=== PATIENT | male | born 1985 | race Caucasian/White ===

== ENCOUNTER 2021-07-04 15:26 | Inpatient (IN) | payer BC ==
[~2021-07-04] VITALS: Ht 172.7 cm; Wt 92.1 kg
[2021-07-04 15:40] VITALS: BP 137/92
--- NOTE | 2021-07-04 17:12 | NUR ---
to er bed 13,no apparent change in condition
--- NOTE | 2021-07-04 17:26 | NUR ---
dr umana at bedside for eval.
[2021-07-04] MEDS ORDERED: ONDANSETRON HCL/PF 4 MG/2 ML VIAL IVP ONE (17:30)
[2021-07-04] MEDS ORDERED: HYDROMORPHONE INJ 2 MG/ML DISP.SYRIN IV ONE (17:30)
[2021-07-04] MEDS ORDERED: IV NS 0.9% 1,000 ML BAG IV ONE (17:30)
[2021-07-04] MEDS ORDERED: IOHEXOL-300 100 ML VIAL IV ONE (17:35)
[2021-07-04] MEDS ORDERED: IV NS 0.9% 250 ML IV ONE (17:35)
--- NOTE | 2021-07-04 17:35 | NUR ---
iv line started blood drawn and sent to lab.
[2021-07-04 17:55] LABS: BASOPHILS % (AUTO) 0.3 % (0.0-2.0); EOSINOPHILS % (AUTO) 0.3 % (0.0-6.0); HEMATOCRIT 51 % (39-51); HEMOGLOBIN 16.4 g/dL (13.5-17.5); LYMPHOCYTES # (AUTO) 1.4 K/uL (0.8-4.8); LYMPHOCYTES % (AUTO) 14.9 % (20.0-44.0); MEAN CORPUSCULAR HGB CONC 32 g/dl (31.0-36.0); MEAN CORPUSCULAR VOLUME 90 fL (80-96); MONOCYTES # (AUTO) 0.4 K/uL (0.1-1.30); MONOCYTES % (AUTO) 4.7 % (2.0-12.0); NEUTROPHILS # (AUTO) 7.7 K/uL (1.8-8.9); NEUTROPHILS % (AUTO) 79.8 % (43.0-81.0); PLATELET COUNT (AUTO) 352 K/uL (150-450); RED BLOOD CELL COUNT(AUTO) 5.68 MIL/uL (4.5-6.0); WHITE BLOOD COUNT (AUTO) 9.6 K/uL (4.3-11.0)
[2021-07-04] MEDS ORDERED: HYDROMORPHONE 1 MG/1 ML DISP.SYRIN ONE (18:00)
[2021-07-04] MEDS ORDERED: ONDANSETRON HCL/PF 4 MG/2 ML VIAL ONE (18:00)
[2021-07-04 18:24] LABS: CREATININE 1.5 mg/dL (0.6-1.3); POTASSIUM 4.9 mmol/L (3.5-5.1)
[2021-07-04] MEDS ORDERED: IV LR 1000 ML 1,000 ML IV ONE (18:30)
[2021-07-04 18:35] LABS: ALBUMIN 4.5 g/dL (3.4-5.0); BILIRUBIN,TOTAL 0.7 mg/dL (0.2-1.0); TOTAL PROTEIN, SERUM 10.4 g/dL (6.4-8.2)
--- NOTE | 2021-07-04 20:56 | NUR ---
VERBAL ORDER FOR 1MG IV DILAUDID PER MD ORDERS ADMINISTERRED.
--- NOTE | 2021-07-04 20:56 | NUR ---
CALLED [facility] PAGED JIM ADAME
[2021-07-04] MEDS ORDERED: ACETAMINOPHEN 650 MG/SUPP.RECT RC PRN (21:30)
[2021-07-04] MEDS ORDERED: ONDANSETRON HCL/PF 4 MG/2 ML VIAL IVP PRN (21:30)
[2021-07-04] MEDS ORDERED: Z GUARD REMEDY 2 OZ OINT TP PRN (21:30)
[2021-07-04] MEDS ORDERED: IV D5/0.45 NACL 1,000 ML IV PRN (21:30)
--- NOTE | 2021-07-04 21:34 | NUR ---
REPORT GIVEN TO ROBBIE STRAUSS
--- NOTE | 2021-07-04 21:47 | NUR ---
Muna nieto in [facility] - 07/04/21 at 2148 by MADONNA PATIENT BEING TRANSFERED TO 324
--- NOTE | 2021-07-04 21:48 | NUR ---
PATIENT BEING TRANSFERRED TO [facility]
--- NOTE | 2021-07-04 22:20 | NUR ---
RN MS OPENING ADMITTING NOTES ADMITTED A 35 Y/O M TO UNIT AT 2155 VIA GURNEY ACCOMPANIED BY Aly RN, PT. IS A/O X 4. ABLE TO MAKE NEEDS KNOWN. NO C/O OF PAIN OR DISCOMFORT AT THIS TIME. PT. ORIENTED TO STAFF AND ROOM. PT. ON ROOM AIR, RAFFI. WELL WITH NO SOB NOTED. PATIENT WITH IV AT RAC G#20 STARTED INFUSION OF D5 1/2 NS 1 L TO RUN AT 200 ML/HR, INFUSING WELL. LUNGS ARE CLEAR ON AUSCULTATION. ABDOMEN SOFT AND NON DISTENDED ON FOUR QUADRANTS. SAFETY MEASURES INITIATED, BED PLACED IN LOWEST POSITION WITH SR-UP X 2. CALL LIGHT AND BEDSIDE TABLE WITHIN EASY REACH.WILL CONTINUE TO MONITOR PATIENT ACCORDINGLY
[2021-07-04] MEDS ORDERED: MORPHINE SULFATE INJ 4 MG/ML DISP.SYRIN IV PRN (22:30)
--- NOTE | 2021-07-05 00:13 | NUR ---
RN NOTES PATIENT C/O SEVERE PAIN ON HIS UPPER ABDOMEN WITH P/S OF 9/10. CALLED DR. ADAME FOR ORDERS OF PAIN MEDS. AND ORDERED MORPHINE SO4 4MG IV Q4, NOTED AND CARRIED OUT. MORPHINE SO4 GIVEN AT 2302. WILL CONTINUE TO MONITOR PATIENT ACCORDINGLY.
--- NOTE | 2021-07-05 01:10 | NUR ---
RN NOTES PATIENT STATED THAT HE IS STILL HAVE PAIN, AND STATED THAT MORPHINE SULFATE IS NOT WORKING FOR HIM. CALLED DR. JIM ADAME AND NOTIFIED HIM PATIENT'S CONCERN. WHILE SPEAKING TO MD, MADE NEW ORDER TO D/C MORPHINE MEDS. AND ORDERED DILAUDID 1 MG Q 6 FOR SEVERE PAIN TO START AT 2AM 07/05/21. ALL ORDERS NOTED AND CARRIED OUT. WILL CONTINUE TO MONITOR PATIENT ACCORDINGLY
[2021-07-05] MEDS ORDERED: HYDROMORPHONE 1 MG/1 ML DISP.SYRIN IV PRN (02:00)
--- NOTE | 2021-07-05 02:00 | NUR ---
RN NOTES Earlier patient wants to do AMA but change his mind and wants to speak to Mitchell Malone-CECILIA. Talked to the patient why he wants to speak with an MD but refused to elaborate, he stated " he already told it to my orientee n and he said he just spoke to ER doctor and per patient" ER doctor was so surprise because he's getting his Dilaudid 1 mg IV q6 PRN" while talking to me was pt was on his bed crossing his legs . Spoke to DR. Malone and informed him that patient wants to speak to him and explained the situation. Dr. Malone explained to me that patient has been doing hospital hopping. No new order was given
--- NOTE | 2021-07-05 02:00 | NUR ---
RN NOTES Patient asked for Dilaudid but gave education regarding this medication because he's planning to do AMA, patient stated " it' s his choice if he's going to do AMA or not but he wants his Dilaudid IV.
--- NOTE | 2021-07-05 02:03 | NUR ---
RN NOTES Dilaudid 1 mg IV given for complained of abdominal pain. Noticed patient was busy watching videos on his cellphone.
--- NOTE | 2021-07-05 03:30 | NUR ---
RN NOTES Patient decided to leave AMA but refused to sign the paper. Patient walked to the elevator , [employer] walked with him and escorted him going downstairs. MD made aware, as well as the supervisor crack off and the charge nurse
[2021-07-05] MEDS ORDERED: PANTOPRAZOLE 40 MG VIAL IV SCH (09:00)
== END 2021-07-05 03:30 | disposition left against medical advice (07) | DRG 438 ==
LOC: ER 15:27 → MED 21:17
PROVIDERS: ADMIT Hospitalist; ATTEND Hospitalist
DX: K85.90 Acute pancreatitis without necrosis or infection, unspecified (principal); N17.0 Acute kidney failure with tubular necrosis; E87.1 Hypo-osmolality and hyponatremia; E11.9 Type 2 diabetes mellitus without complications; Z90.49 Acquired absence of other specified parts of digestive tract; Z20.822 Contact with and (suspected) exposure to COVID-19; F10.10 Alcohol abuse, uncomplicated
CPT/HCPCS: 36415; 80053-TC; 83605-TC; 83690-TC; 85025-TC; 87040-TC; 87081-TC; C9803; G0378; G0480; J1170; J2270; J2405; J3490; J7030; J7050; J7120; Q9967

== ENCOUNTER 2022-07-07 02:35 | Emergency (ER) | payer BC ==
[~2022-07-07] VITALS: Ht 172.7 cm; Wt 88.5 kg
--- NOTE | 2022-07-07 02:57 | NUR ---
PT UNABLE TO PROVIDE URINE AT THIS TIME, URINE CUP PROVIDED
[2022-07-07] MEDS ORDERED: MORPHINE SULFATE INJ 2 MG/ML DISP.SYRIN ONE ×2 (03:20→06:48)
[2022-07-07] MEDS ORDERED: MORPHINE SULFATE INJ 2 MG/ML DISP.SYRIN IV ONE ×2 (03:30→07:00)
[2022-07-07] MEDS ORDERED: IV NS 0.9% 1,000 ML BAG IV ONE ×2 (03:30→05:30)
--- NOTE | 2022-07-07 03:33 | NUR ---
IV CANNULA G18 INSERTED ON LEFT AC. BLOOD DRAWN AND SENT TO LAB
[2022-07-07 03:50] LABS: BASOPHILS % (AUTO) 0.2 % (0.0-2.0); EOSINOPHILS % (AUTO) 3.3 % (0.0-6.0); HEMATOCRIT 38 % (39-51); HEMOGLOBIN 12.6 g/dL (13.5-17.5); LYMPHOCYTES # (AUTO) 1.2 K/uL (0.8-4.8); LYMPHOCYTES % (AUTO) 17.8 % (20.0-44.0); MEAN CORPUSCULAR HGB CONC 33 g/dl (31.0-36.0); MEAN CORPUSCULAR VOLUME 88 fL (80-96); MONOCYTES # (AUTO) 0.5 K/uL (0.1-1.30); NEUTROPHILS # (AUTO) 4.7 K/uL (1.8-8.9); NEUTROPHILS % (AUTO) 71.7 % (43.0-81.0); PLATELET COUNT (AUTO) 180 K/uL (150-450); RED BLOOD CELL COUNT(AUTO) 4.31 MIL/uL (4.5-6.0); WHITE BLOOD COUNT (AUTO) 6.5 K/uL (4.3-11.0)
[2022-07-07 04:07] LABS: CALCIUM, SERUM 8.2 mg/dL (8.5-10.1); CARBON DIOXIDE 23 mmol/L (21-32); CHLORIDE 109 mmol/L (98-107); CREATININE 0.7 mg/dL (0.6-1.3); GLUCOSE 196 mg/dL (74-106); POTASSIUM 3.3 mmol/L (3.5-5.1); SODIUM SERUM 137 mmol/L (136-145); UREA NITROGEN, BLOOD 7 mg/dL (7-18)
[2022-07-07 04:14] LABS: ALANINE AMINOTRANSFERASE 97 U/L (12-78); ALBUMIN 3.4 g/dL (3.4-5.0); ALKALINE PHOSPHATASE 154 U/L (46-116); ASPARTATE AMINOTRANSFERASE 54 U/L (15-37); BILIRUBIN,DIRECT 0.6 mg/dL (0.0-0.2); BILIRUBIN,TOTAL 1.1 mg/dL (0.2-1.0); LIPASE 745 U/L (73-393); TOTAL PROTEIN, SERUM 7.4 g/dL (6.4-8.2)
--- NOTE | 2022-07-07 06:15 | NUR ---
INGRID BARNEY AT BEDSIDE
--- NOTE | 2022-07-07 06:41 | NUR ---
SEEN BY DR RODRÍGUEZ
[2022-07-07] MEDS ORDERED: HYDR-4303 PO (06:42)
[2022-07-07] MEDS ORDERED: PANT40TA2 PO (06:42)
--- NOTE | 2022-07-07 07:22 | NUR ---
IV CANNULA REMOVED
[2022-07-07 07:23] VITALS: BP 151/100
--- NOTE | 2022-07-07 07:23 | NUR ---
Patient discharged to home in stable condition. Written and verbal after care instructions given. Patient verbalizes understanding of instruction.
== END 2022-07-07 07:23 | disposition home or self-care (01) ==
LOC: ER 02:36
DX: K85.90 Acute pancreatitis without necrosis or infection, unspecified (principal); Z88.0 Allergy status to penicillin; Z60.2 Problems related to living alone
CPT/HCPCS: 99285; 74176; 96374; 76705; 96361; 93005; 96376; 85025; 80048; 83690; 80076; 84484; 85730; J7030 ×2; J2270 ×2